=== PATIENT | female | born 1995 | race Caucasian/White ===

== ENCOUNTER 2018-06-05 19:04 | Emergency (ER) | payer MEDICAID ==
[2018-06-05 19:53] VITALS: BP 127/81
--- NOTE | 2018-06-05 19:59 | UC ---
Throat Pain/Nasal Tong HPI - HPI Summary HPI Summary: 22 y/o female presents to the urgent care c/o her tongue has some indentation and some taste buds are red w/ decrease taste for the past 2 weeks. Pt has been exercising a lot more than usual. She has Hx of anemia, but stopped taking Iron pills last year. Pt denies fever, sore throat, URI, SOB, chest pain, abdominal pain, N/V/D. - History of Current Complaint Chief Complaint: UCGI Stated Complaint: MOUTH/TONGUE COMPLAINT Time Seen by Provider: 06/05/18 19:57 Hx Obtained From: Patient Hx Last Menstrual Period: 05/03/18 ?: No Onset/Duration: Gradual Onset, Lasting Weeks - 2 weeks, Still Present, Worse Since - today Severity: Mild Pain Intensity: 0 Pain Scale Used: 0-10 Numeric Cough: None Associated Signs & Symptoms: Positive: Other - tongue w/ mild swelling and discrete redness. Negative: Dysphagia, Sinus Discomfort, Nasal Discharge, Fever - Epiglottits Risk Factors Epiglottis Risk Factors: Negative - Allergies/Home Medications Allergies/Adverse Reactions: Allergies Allergy/AdvReac Type Severity Reaction Status Date / Time nickel Allergy Rash Uncoded 06/05/18 19:54 Home Medications: Home Medications NK [No Home Medications Reported] 06/05/18 [History Confirmed 06/05/18] PMH/Surg Hx/FS Hx/Imm Hx Previously Healthy: Yes Other Endocrine History: Anemia - Surgical History Surgical History: None - Family History Family History: Hypothyrodism - Social History Occupation: Unemployed Lives: With Family Alcohol Use: None Substance Use Type: None Smoking Status (MU): Never Smoked Tobacco - Immunization History Vaccination Up to Date: Yes Review of Systems Constitutional: Negative Skin: Negative Eyes: Negative ENT: Other - tongue w/ some fisures and redness Respiratory: Negative Cardiovascular: Negative Gastrointestinal: Negative Genitourinary: Negative Motor: Negative Neurovascular: Negative Musculoskeletal: Negative Neurological: Negative Psychological: Negative Is Patient Immunocompromised?: No All Other Systems Reviewed And Are Negative: Yes Physical Exam - Summary Physical Exam Summary: VITAL SIGNS: Reviewed. GENERAL: Patient is a well developed and nourished female who is sitting comfortable in the examining table. Patient is not in any acute respiratory distress. HEAD AND FACE: No signs of trauma. No ecchymosis, hematomas or skull depressions. No sinus tenderness. EYES: PERRLA, EOMI x 2, No injected conjunctiva, no nystagmus. No photophobia. EARS: Hearing grossly intact. Ear canals and tympanic membranes are within normal limits. MOUTH: pharynx with no erythema, no exudates, no palatal petechiae. NO B/L tonsillar enlargement . Uvula in midline. tongue w/ border taste papilla swollen and non tender to touch, angles of lips w/ mild redness, fissuring and dryness NECK: Supple, trachea is midline, Negative anterior cervical lymphadenopathy, no JVD, no carotid bruit, no c-spine tenderness, neck with full ROM. No meningeal signs, no Kernig's or brudzinskis signs. CHEST: Symmetric, no tenderness at palpation LUNGS: Clear to auscultation bilaterally. No wheezing or crackles. CVS: Regular rate and rhythm, S1 and S2 present, no murmurs or gallops appreciated. ABDOMEN: Soft, non-tender. No signs of distention. No rebound no guarding, and no masses palpated. Bowel sounds are normal. EXTREMITIES: FROM in all major joints, no edema, no cyanosis or clubbing. NEURO: Alert and oriented x 3. No acute neurological deficits. Speech is normal and follows commands. SKIN: Dry and warm Triage Information Reviewed: Yes Vital Signs: Initial Vital Signs Temp 98.7 F 06/05/18 19:39 Pulse 86 06/05/18 19:39 Resp 18 06/05/18 19:39 BP 127/81 06/05/18 19:39 Pulse Ox 100 06/05/18 19:39 Throat Pain/Nasal Course/Dx - Course Course Of Treatment: 22 y/o female presents to the urgent care c/o her tongue has some indentation and some taste buds are red w/ decrease taste for the past 2 weeks. Pt has been exercising a lot more than usual. She has Hx of anemia, but stopped taking Iron pills last year. Pt denies fever, sore throat, URI, SOB , chest pain, abdominal pain, N/V/D. Hx obtained. pt w/ inflamation of scattered anterior tongue papilla adn midl chelitis on examination. Pt Rx Ibuprofen to alleviate symptoms. Advised to f/u w/ PCP for further blood work and maangement since she may probably still w/ anemia. D/C instructions explained. Pt understood and agreed w/ plan of care. - Differential Dx/Diagnosis Differential Diagnosis/HQI/PQRI: Pharyngitis, URI, Other - aphtous ulcers, gigivostomatitis, anemia, thrush Provider Diagnoses: 1- gingivostomatitis Discharge - Sign-Out/Discharge Documenting (check all that apply): Patient Departure All imaging exams completed and their final reports reviewed: No Studies - Discharge Plan Condition: Stable Disposition: HOME Patient Education Materials: Gingivostomatitis (ED) Referrals: [facility] [place] [facility]IAN REFERRAL [Outside] - 3 Days Additional Instructions: 1- You have inflammation of your tongue papillas please avoid acidic food or salty food. Increase fluid intake. 2- Take Ibuprofen PO q6-8hrs prn to decrease inflammation 3- Please f/u w/ a PCP from the [facility] [place] nest work for further management in your anemia. - Billing Disposition and Condition Condition: STABLE Disposition: Home
--- NOTE | 2018-06-06 07:55 | UC ---
Discharge - Sign-Out/Discharge Documenting (check all that apply): Post-Discharge Follow Up All imaging exams completed and their final reports reviewed: No - Discharge Plan Condition: Stable Disposition: HOME Patient Education Materials: Gingivostomatitis (ED) Referrals: [facility] [place] [facility]IAN REFERRAL [Outside] - 3 Days Additional Instructions: 1- You have inflammation of your tongue papillas please avoid acidic food or salty food. Increase fluid intake. 2- Take Ibuprofen PO q6-8hrs prn to decrease inflammation 3- Please f/u w/ a PCP from the [facility] [place] nest work for further management in your anemia. - Billing Disposition and Condition Condition: STABLE Disposition: Home
--- NOTE | 2018-06-06 07:56 | UC ---
Discharge - Sign-Out/Discharge Documenting (check all that apply): Post-Discharge Follow Up All imaging exams completed and their final reports reviewed: No Studies - Discharge Plan Condition: Stable Disposition: HOME Patient Education Materials: Gingivostomatitis (ED) Referrals: [facility] [place] [facility] REFERRAL [Outside] - 3 Days Additional Instructions: 1- You have inflammation of your tongue papillas please avoid acidic food or salty food. Increase fluid intake. 2- Take Ibuprofen PO q6-8hrs prn to decrease inflammation 3- Please f/u w/ a PCP from the [facility] [place] nest work for further management in your anemia. - Billing Disposition and Condition Condition: STABLE Disposition: Home
== END 2018-06-05 20:30 | disposition home or self-care (01) ==
LOC: UCCORT 19:04
DX: K05.10 Chronic gingivitis, plaque induced (principal)
CPT/HCPCS: 99201; G0463